=== PATIENT | female | born 1990 | race Caucasian/White ===

== ENCOUNTER 2021-10-02 07:31 | Emergency (ER) | payer OTHER, SELFPAY ==
[2021-10-02 07:36] VITALS: BP 129/79; PULSE 89; RESP 18; TEMP 36.3; O2SAT 99; BMI 30.4
--- NOTE | 2021-10-02 07:50 | ED_ITS ---
HPI - Female Genitourinary General Time Seen by Provider: 07:42 <Mary Westfall MD - Last Filed: 10/02/21 08:20> Date Seen: 10/02/21 <Mary Westfall MD - Last Filed: 10/02/21 08:20> Chief complaint: Flank Pain <Mary Westfall MD - Last Filed: 10/02/21 08:20> Stated complaint: Kidney pain/stone <Mary Westfall MD - Last Filed: 10/02/21 08:20> Time Seen by Provider: 10/02/21 07:43 <Mary Westfall MD - Last Filed: 10/02/21 08:20> Source: patient and RN notes reviewed <Mary Westfall MD - Last Filed: 10/02/21 08:20> Mode of arrival: ambulatory <Mary Westfall MD - Last Filed: 10/02/21 08:20> Limitations: no limitations <Mary Westfall MD - Last Filed: 10/02/21 08:20> History of Present Illness HPI Narrative: 30 year old female previously healthy female comes to the ER for evaluation of left flank pain and vomiting. Patient noted the onset of hematuria and burning with urination yesterday afternoon. This morning she is now vomiting. She described the pain as constant with radiation into the left groin. She notes that she has been urinating frequently and also has some soft stools. She denies fever or chills. Has not had any ill contacts. She tried to take ibuprofen and only minimally helped. She has had UTIs in the past but not frequently. She denies any cough cold sore throat. <Mary Westfall MD - Last Filed: 10/02/21 08:20> MD elicited complaint: dysuria <Mary Westfall MD - Last Filed: 10/02/21 08:20> Onset (ago): hour(s) (Began yesterday afternoon between 12 and 18 hours ago) <Mary Westfall MD - Last Filed: 10/02/21 08:20> Location of symptoms: flank (Left) <Mary Westfall MD - Last Filed: 10/02/21 08:20> Severity: moderate <Mary Westfall MD - Last Filed: 10/02/21 08:20> Patient : No <Mary Westfall MD - Last Filed: 10/02/21 08:20> Related Data Home medications: Previous Rx's Medication Instructions Recorded ondansetron 4 mg disintegrating 4 mg PO Q6H PRN #20 tab 10/02/21 tablet prochlorperazine maleate 5 mg 5 mg PO TID PRN #10 tab 10/02/21 tablet (Compazine) <Mary Westfall MD - Last Filed: 10/02/21 08:20> Allergies/Adverse reactions: Allergies Allergy/AdvReac Type Severity Reaction Status Date / Time latek Allergy Uncoded 10/02/21 07:36 <Mary Westfall MD - Last Filed: 10/02/21 08:20> Review of Systems Status of ROS: Reports: 10 or more systems reviewed and unremarkable except as noted in History and below <Mary Westfall MD - Last Filed: 10/02/21 08:20> Narrative: Patient denies fever. She has had no change in her vision, sore throat, chest pain, cough, shortness of breath. She denies abdominal pain. No lower extremity edema. No personal or family history of kidney stones. <Mary Westfall MD - Last Filed: 10/02/21 08:20> [facility] Social History: Social History Smoking Status: Never smoker Do you use any of these nicotine containing products: None How often do you have a drink containing alcohol: monthly or less AUDIT-C Alcohol total score: 1 Non-prescribed substance use: denies use <Mary Westfall MD - Last Filed: 10/02/21 08:20> Exam Const: Vital Signs, click to edit/add: Vital Signs - 24 hr 10/02/21 07:36 Temperature 97.4 F L Pulse Rate [Right Pulse Oximeter] 89 Respiratory Rate 18 Blood Pressure [Ri ght Upper Arm] 129/79 Pulse Oximetry 99 <Mary Westfall MD - Last Filed: 10/02/21 08:20> Vital Signs, click to edit/add: Vital Signs - 24 hr 10/02/21 07:36 Temperature 97.4 F L Pulse Rate [Right Pulse Oximeter] 89 Respiratory Rate 18 Blood Pressure [Ri ght Upper Arm] 129/79 Pulse Oximetry 99 <Emma Damon MD - Last Filed: 10/02/21 10:49> Documenting provider has reviewed patient's vital signs: yes <Mary Westfall MD - Last Filed: 10/02/21 08:20> Common normals: no apparent distress, oriented x3, no limitations and healthy appearing <Mary Westfall MD - Last Filed: 10/02/21 08:20> General appearance: cooperative and comfortable <Mary Westfall MD - Last Filed: 10/02/21 08:20> HENMT: Common normals: normocephalic <Mary Westfall MD - Last Filed: 10/02/21 08:20> Head and scalp: normocephalic <Mary Westfall MD - Last Filed: 10/02/21 08:20> Eye: General eye: normal appearance of both eyes <Mary Westfall MD - Last Filed: 10/02/21 08:20> Neck & C-Spine: Common normals: full ROM and supple <Mary Westfall MD - Last Filed: 10/02/21 08:20> Resp: Common normals: normal respiratory effort and clear to auscultation bilaterally <Mary Westfall MD - Last Filed: 10/02/21 08:20> Auscultation: clear to auscultation bilaterally <Mary Westfall MD - Last Filed: 10/02/21 08:20> Cardio: Common normals: regular rate and regular rhythm <Mary Westfall MD - Last Filed: 10/02/21 08:20> Rate: regular rate <Mary Westfall MD - Last Filed: 10/02/21 08:20> Rhythm: regular rhythm <Mary Westfall MD - Last Filed: 10/02/21 08:20> GI: Common normals: soft to palpation and non-tender <Mary Westfall MD - Last Filed: 10/02/21 08:20> Palpation: soft <Mary Westfall MD - Last Filed: 10/02/21 08:20> : Bladder/kidney exam: CVA tenderness (Mildly on the left) <Mary Westfall MD - Last Filed: 10/02/21 08:20> Back & Pelvis: General back: CVA tenderness (Mildly on the left) <Mary Westfall MD - Last Filed: 10/02/21 08:20> Lumbar spine/lower back: lumbar spinal tenderness (Mild) <Mary Westfall MD - Last Filed: 10/02/21 08:20> Extremity: Common normals: normal to inspection and full ROM <Mary Westfall MD - Last Filed: 10/02/21 08:20> Neuro: Common normals: oriented x3 <Mary Westfall MD - Last Filed: 10/02/21 08:20> Psych: Common normals: mental status grossly normal <Mary Westfall MD - Last Filed: 10/02/21 08:20> Skin: Common normals: no rashes or lesions noted <Mary Westfall MD - Last Filed: 10/02/21 08:20> General skin exam: no rashes or lesions noted <Mary Westfall MD - Last Filed: 10/02/21 08:20> Course Course Hospital Course: At this time differential diagnosis includes but is not limited to pyelonephritis, ureteral colic, nephrolithiasis, bowel pathology such as colitis, diverticulitis, enteritis. Will obtain a CBC, comprehensive panel, CRP, urinalysis, lactate. An IV will be placed and IV fluids 1 L normal saline, Toradol 15 mg and Zofran 4 mg IV will be given. At this time Dr. Capps will be taking over care of this patient. <Mary Westfall MD - Last Filed: 10/02/21 08:20> Reevaluation(s) Reevaluation #1: Reviewed with patient that her white count and chemistries including lactate are looking normal. Urine shows some hematuria, no definitive evidence for infection. She is feeling much better after Zofran and Toradol. She still has half of her fluids left to go. Reviewed with her that we will be doing a CT abdomen pelvis without contrast. It is possible this could be a kidney stone, still possible for early pyelonephritis, possible for other abdominal etiology given she has had some mild diarrhea. Will await CT scan results and I will review this with her once I have the radiology reading. <Emma Damon MD - Last Filed: 10/02/21 10:49> Time: 08:33 <Emma Damon MD - Last Filed: 10/02/21 10:49> Reevaluation #2: Patient: ANGELA GOMEZ Facility:?[facility] Patient ID:?[id number] Site Patient ID:?[id number]. Site :?[id number] Study:?CT Abdomen/Pelvis w/o-10/02/2021 9:08:26 AM Ordering Physician:Kurtis Carter Final Report: INDICATION: Left flank pain with urinary changes COMPARISON: There are no prior studies for comparison TECHNIQUE: CT examination of the abdomen and pelvis was performed without intravenous contrast. Thin section axial images were obtained from the lung bases through the pubic symphysis. Oral contrast was not administered. Please note that all CT scans at this facility use dose modulation, iterative reconstruction, and/or weight-based dosing when appropriate to reduce radiation dose to as low as reasonably achievable. FINDINGS: LUNG BASES: The lung bases as visualized appear normal.The heart size is normal at the lung bases. LIVER/BILIARY SYSTEM:The liver is normal in size and configuration given the lack of intravenous contrast. There is no visible focal mass and there is no intra- or extra hepatic biliary ductal dilatation.The gall bladder appears normal. ADRENALS: Normal non-contrast appearance KIDNEYS, URETERS and BLADDER:The kidneys appear normal given lack of intravenous contrast. No visible mass, calculus or hydronephrosis. The ureters and bladder as visualized appear normal. SPLEEN:Normal non-contrast appearance. PANCREAS: Normal non-contrast appearance. RETROPERITONEUM and MESENTERY: There is no mass, adenopathy or aortic aneurysm. GASTROINTESTINAL SYSTEM: There is no evidence of diverticulitis, colitis, mechanical obstruction, or appendicitis. The small bowel as visualized appears normal.A few scattered diverticula are noted. PELVIS: No mass, adenopathy or free fluid.Pelvic calcifications represent phleboliths OSSEOUS STRUCTURES and ABDOMINAL WALL: There is an age-appropriate appearance of the osseous structures.No significant abdominal wall defect. OTHER: No free fluid or free air. IMPRESSION: No visible cause for left flank pain and urinary changes. Please note that all CT scans at this facility use dose modulation, iterative reconstruction, and/or weight-based dosing when appropriate to reduce radiation dose to as low as reasonably achievable. Dictated by David Way MD @ 10/02/2021 9:27:54 AM (Electronic Signature) Reviewed with patient that her CT is showing no acute abnormalities. At 8:46 a.m. nursing reported that her nausea was increasing again but her pain was so good. We did order a 2nd dose of Zofran. At this time she is still feeling quite nauseated. I am going to see if Compazine will work for her. We have discussed that is the primary working diagnosis would be a viral gastroenteritis here. She states she has been having soft type stools for 2 days now. There is nothing on the laboratory evaluation or CT showing S any specific treatable etiology, nothing for an acute surgical abdomen. If the Compazine works for her, can send her home with a combination of Zofran and or Compazine for further outpatient treatment of this. <Emma Damon MD - Last Filed: 10/02/21 10:49> Time: 09:53 <Emma Damon MD - Last Filed: 10/02/21 10:49> Reevaluation #3: Patient had good control of her nausea with the IV Compazine, did noted made her feel a little jittery or anxious but nothing that she feels she needs anything for. Did review with her that it is very likely was a side effect of the Compazine. Oral usually does not give the same side effects. We are planning to discharge her to home with further outpatient management of probable gastroenteritis. Signs and symptoms for return reviewed. <Emma Person MD - Last Filed: 10/02/21 10:49> Time: 10:37 <Emma Damon MD - Last Filed: 10/02/21 10:49> Vital Signs Vital signs: Initial Vital Signs Temperature 97.4 F L 10/02/21 07:36 Temperature Source Temporal Artery Scan 10/02/21 07:36 Pulse Rate 89 10/02/21 07:36 Respiratory Rate 18 10/02/21 07:36 Blood Pressure 129/79 10/02/21 07:36 Blood Pressure Mean 95 10/02/21 07:36 Pulse Oximetry 99 10/02/21 07:36 Oxygen Delivery Method 10/02/21 07:36 Vital Signs Temperature 97.4 F L 10/02/21 07:36 Pulse Rate 89 10/02/21 07:36 Respiratory Rate 18 10/02/21 07:36 Blood Pressure 129/79 10/02/21 07:36 Pulse Oximetry 99 10/02/21 07:36 Temperature 97.4 F L 10/02/21 07:36 Pulse Rate 89 10/02/21 07:36 Respiratory Rate 18 10/02/21 07:36 Blood Pressure 129/79 10/02/21 07:36 Pulse Oximetry 99 10/02/21 07:36 <Mary Westfall MD - Last Filed: 10/02/21 08:20> Initial Vital Signs Temperature 97.4 F L 10/02/21 07:36 Temperature Source Temporal Artery Scan 10/02/21 07:36 Pulse Rate 89 10/02/21 07:36 Respiratory Rate 18 10/02/21 07:36 Blood Pressure 129/79 10/02/21 07:36 Blood Pressure Mean 95 10/02/21 07:36 Pulse Oximetry 99 10/02/21 07:36 Oxygen Delivery Method 10/02/21 07:36 Vital Signs Temperature 97.4 F L 10/02/21 07:36 Pulse Rate 89 10/02/21 07:36 Respiratory Rate 18 10/02/21 07:36 Blood Pressure 129/79 10/02/21 07:36 Pulse Oximetry 99 10/02/21 07:36 Temperature 97.4 F L 10/02/21 07:36 Pulse Rate 89 10/02/21 07:36 Respiratory Rate 18 10/02/21 07:36 Blood Pressure 129/79 10/02/21 07:36 Pulse Oximetry 99 10/02/21 07:36 <Emma Damon MD - Last Filed: 10/02/21 10:49> MDM - Female Genitourinary Lab Data Labs: Lab Results 10/02/21 10/02/21 10/02/21 Range/Units 07:47 07:47 08:00 WBC 6.79 (4.50-11.00) K/uL RBC 4.98 (4.00-5.20) m/uL Hgb 13.7 (12.0-16.0) gm/dL Hct 41.3 (33.0-51.0) % MCV 83 (80-100) fL MCH 28 (26-34) pg MCHC 33 (32-36) gm/dL RDW Coeff of Steve 13.1 (11.5-15.5) % Plt Count 393 (140-440) K/uL Neut % (Auto) 71.2 (42.0-72.0) % Lymph % (Auto) 19.1 L (20-44) % [place] % (Auto) 8.0 (0.0-11.0) % Eos % (Auto) 1.2 (0.0-7.0) % Baso % (Auto) 0.4 (0.0-3.0) % Neut # (Auto) 4.83 (1.7-7.0) K/uL Lymph # (Auto) 1.30 (0.90-2.90) K/uL [place] # (Auto) 0.50 (0.00-0.90) K/UL Eos # (Auto) 0.08 (0.00-0.50) K/uL Baso # (Auto) 0.03 (0.00-0.30) K/uL Abs Immat Gran (auto) 0.01 (0.00-0.30) K/uL Sodium (135-149) mmol/L Potassium (3.6-5.1) mmol/L Chloride (96-114) mmol/L Carbon Dioxide (20-32) mmol/L BUN (5-24) mg/dL Creatinine (0.5-1.5) mg/dL Estimated Creat Clear Estimated GFR ml/min Glucose (60-115) mg/dL Lactate (0.5-1.9) mmol/L Calcium (8.4-10.6) mg/dL Total Bilirubin (0.1-1.5) mg/dL AST (12-35) U/L ALT (4-35) U/L Alkaline Phosphatase (40-150) U/L C-Reactive Protein (0.5-1.0) mg/dL Total Protein (6.0-8.3) g/dL Albumin (3.3-5.0) g/dL Urine Color Cancelled Yellow Urine Appearance Cancelled Clear Urine pH Cancelled 6.5 Ur Specific [place] Cancelled 1.025 Urine Protein Cancelled 2+ A Urine Glucose (UA) Cancelled Negative Urine Ketones Cancelled Negative Urine Blood Cancelled Trace-intact A Urine Nitrite Cancelled Negative Urine Bilirubin Cancelled Negative Urine Urobilinogen Cancelled 0.2 Ur Leukocyte Esterase Cancelled Negative Urine RBC 0-2 (0-2) Urine WBC 0-2 (0-5) Urine WBC Clumps None (None) Ur Squamous Epith Cells None (None-Few) Urine Bacteria None (None) 10/02/21 10/02/21 Range/Units 08:00 08:00 WBC (4.50-11.00) K/uL RBC (4.00-5.20) m/uL Hgb (12.0-16.0) gm/dL Hct (33.0-51.0) % MCV (80-100) fL MCH (26-34) pg MCHC (32-36) gm/dL RDW Coeff of Steve (11.5-15.5) % Plt Count (140-440) K/uL Neut % (Auto) (42.0-72.0) % Lymph % (Auto) (20-44) % [place] % (Auto) (0.0-11.0) % Eos % (Auto) (0.0-7.0) % Baso % (Auto) (0.0-3.0) % Neut # (Auto) (1.7-7.0) K/uL Lymph # (Auto) (0.90-2.90) K/uL [place] # (Auto) (0.00-0.90) K/UL Eos # (Auto) (0.00-0.50) K/uL Baso # (Auto) (0.00-0.30) K/uL Abs Immat Gran (auto) (0.00-0.30) K/uL Sodium 139 (135-149) mmol/L Potassium 3.9 (3.6-5.1) mmol/L Chloride 106 (96-114) mmol/L Carbon Dioxide 23 (20-32) mmol/L BUN 11 (5-24) mg/dL Creatinine 0.9 (0.5-1.5) mg/dL Estimated Creat Clear 91.36 Estimated GFR 88 ml/min Glucose 108 (60-115) mg/dL Lactate 1.1 (0.5-1.9) mmol/L Calcium 9.0 (8.4-10.6) mg/dL Total Bilirubin 0.5 (0.1-1.5) mg/dL AST 25 (12-35) U/L ALT 19 (4-35) U/L Alkaline Phosphatase 61 (40-150) U/L C-Reactive Protein < 0.5 L (0.5-1.0) mg/dL Total Protein 7.8 (6.0-8.3) g/dL Albumin 4.4 (3.3-5.0) g/dL Urine Color Urine Appearance Urine pH Ur Specific [place] Urine Protein Urine Glucose (UA) Urine Ketones Urine Blood Urine Nitrite Urine Bilirubin Urine Urobilinogen Ur Leukocyte Esterase Urine RBC (0-2) Urine WBC (0-5) Urine WBC Clumps (None) Ur Squamous Epith Cells (None-Few) Urine Bacteria (None) <Mary Westfall MD - Last Filed: 10/02/21 08:20> Lab Results 10/02/21 10/02/21 10/02/21 Range/Units 07:47 07:47 08:00 WBC 6.79 (4.50-11.00) K/uL RBC 4.98 (4.00-5.20) m/uL Hgb 13.7 (12.0-16.0) gm/dL Hct 41.3 (33.0-51.0) % MCV 83 (80-100) fL MCH 28 (26-34) pg MCHC 33 (32-36) gm/dL RDW Coeff of Steve 13.1 (11.5-15.5) % Plt Count 393 (140-440) K/uL Neut % (Auto) 71.2 (42.0-72.0) % Lymph % (Auto) 19.1 L (20-44) % [place] % (Auto) 8.0 (0.0-11.0) % Eos % (Auto) 1.2 (0.0-7.0) % Baso % (Auto) 0.4 (0.0-3.0) % Neut # (Auto) 4.83 (1.7-7.0) K/uL Lymph # (Auto) 1.30 (0.90-2.90) K/uL [place] # (Auto) 0.50 (0.00-0.90) K/UL Eos # (Auto) 0.08 (0.00-0.50) K/uL Baso # (Auto) 0.03 (0.00-0.30) K/uL Abs Immat Gran (auto) 0.01 (0.00-0.30) K/uL Sodium (135-149) mmol/L Potassium (3.6-5.1) mmol/L Chloride (96-114) mmol/L Carbon Dioxide (20-32) mmol/L BUN (5-24) mg/dL Creatinine (0.5-1.5) mg/dL Estimated Creat Clear Estimated GFR ml/min Glucose (60-115) mg/dL Lactate (0.5-1.9) mmol/L Calcium (8.4-10.6) mg/dL Total Bilirubin (0.1-1.5) mg/dL AST (12-35) U/L ALT (4-35) U/L Alkaline Phosphatase (40-150) U/L C-Reactive Protein (0.5-1.0) mg/dL Total Protein (6.0-8.3) g/dL Albumin (3.3-5.0) g/dL Urine Color Cancelled Yellow Urine Appearance Cancelled Clear Urine pH Cancelled 6.5 Ur Specific [place] Cancelled 1.025 Urine Protein Cancelled 2+ A Urine Glucose (UA) Cancelled Negative Urine Ketones Cancelled Negative Urine Blood Cancelled Trace-intact A Urine Nitrite Cancelled Negative Urine Bilirubin Cancelled Negative Urine Urobilinogen Cancelled 0.2 Ur Leukocyte Esterase Cancelled Negative Urine RBC 0-2 (0-2) Urine WBC 0-2 (0-5) Urine WBC Clumps None (None) Ur Squamous Epith Cells None (None-Few) Urine Bacteria None (None) 10/02/21 10/02/21 Range/Units 08:00 08:00 WBC (4.50-11.00) K/uL RBC (4.00-5.20) m/uL Hgb (12.0-16.0) gm/dL Hct (33.0-51.0) % MCV (80-100) fL MCH (26-34) pg MCHC (32-36) gm/dL RDW Coeff of Steve (11.5-15.5) % Plt Count (140-440) K/uL Neut % (Auto) (42.0-72.0) % Lymph % (Auto) (20-44) % [place] % (Auto) (0.0-11.0) % Eos % (Auto) (0.0-7.0) % Baso % (Auto) (0.0-3.0) % Neut # (Auto) (1.7-7.0) K/uL Lymph # (Auto) (0.90-2.90) K/uL [place] # (Auto) (0.00-0.90) K/UL Eos # (Auto) (0.00-0.50) K/uL Baso # (Auto) (0.00-0.30) K/uL Abs Immat Gran (auto) (0.00-0.30) K/uL Sodium 139 (135-149) mmol/L Potassium 3.9 (3.6-5.1) mmol/L Chloride 106 (96-114) mmol/L Carbon Dioxide 23 (20-32) mmol/L BUN 11 (5-24) mg/dL Creatinine 0.9 (0.5-1.5) mg/dL Estimated Creat Clear 91.36 Estimated GFR 88 ml/min Glucose 108 (60-115) mg/dL Lactate 1.1 (0.5-1.9) mmol/L Calcium 9.0 (8.4-10.6) mg/dL Total Bilirubin 0.5 (0.1-1.5) mg/dL AST 25 (12-35) U/L ALT 19 (4-35) U/L Alkaline Phosphatase 61 (40-150) U/L C-Reactive Protein < 0.5 L (0.5-1.0) mg/dL Total Protein 7.8 (6.0-8.3) g/dL Albumin 4.4 (3.3-5.0) g/dL Urine Color Urine Appearance Urine pH Ur Specific [place] Urine Protein Urine Glucose (UA) Urine Ketones Urine Blood Urine Nitrite Urine Bilirubin Urine Urobilinogen Ur Leukocyte Esterase Urine RBC (0-2) Urine WBC (0-5) Urine WBC Clumps (None) Ur Squamous Epith Cells (None-Few) Urine Bacteria (None) <Emma Damon MD - Last Filed: 10/02/21 10:49> Discharge Plan Discharge Clinical Impression: Nausea & vomiting Qualifiers: Vomiting type: unspecified Qualified Code(s): R11.2 - Nausea with vomiting, unspecified Abdominal pain Qualifiers: Abdominal location: unspecified location Qualified Code(s): R10.9 - Unspecified abdominal pain <Mary Westfall MD - Last Filed: 10/02/21 08:20> Patient Disposition: Home, Self-Care <Mary Westfall MD - Last Filed: 10/02/21 08:20> Condition: Stable <Mary Westfall MD - Last Filed: 10/02/21 08:20> Instructions: Gastroenteritis (ED), Acute Nausea and Vomiting (ED), Abdominal Pain (ED) <Mary Westfall MD - Last Filed: 10/02/21 08:20> Additional Instructions: Can try Zofran per prescription to help with acute nausea and vomiting. If Zofran is not working prescription for Compazine will also be provided. Can use frequent sips of clear liquids every 5-10 minutes while awake to help pr event dehydration. Once you are feeling better an appetite is returning, abdominal pain is decreasing, can try did advance diet as tolerated back to regular. If you are not improving in the next 24-48 hours but not worsening, do recommend re-evaluation in clinic. If at any point her pain is worsening, develops fever with it, have uncontrolled vomiting, have new concerns associated with these current symptoms, do recommend return to the ER for further evaluation. <Mary Westfall MD - Last Filed: 10/02/21 08:20> Activity Level: Activity as Tolerated <Mary Westfall MD - Last Filed: 10/02/21 08:20> Activity as Tolerated <Emma Damon MD - Last Filed: 10/02/21 10:49> Prescriptions: New ondansetron 4 mg tablet,disintegrating 4 mg PO Q6H PRN (Reason: nausea and vomiting) Qty: 20 0RF prochlorperazine maleate [Compazine] 5 mg tablet 5 mg PO TID PRNQty: 10 0RF <Mary Westfall MD - Last Filed: 10/02/21 08:20> Stand Alone Forms: My[facility] Info Instructions <Mary Westfall MD - Last Filed: 10/02/21 08:20>
[2021-10-02] MEDS: 0.9 % SODIUM CHLORIDE 1000 ml 1,000 ML IV (08:08)
[2021-10-02] MEDS: ONDANSETRON 2 MG/ML inj 4 MG IVP ×2 (08:08→08:46)
[2021-10-02 08:09] LABS: Basophils Absolute Auto 0.03 K/uL (0.00-0.30); Basophils Percent Auto 0.4 % (0.0-3.0); Eosinophils Absolute Auto 0.08 K/uL (0.00-0.50); Eosinophils Percent Auto 1.2 % (0.0-7.0); Hematocrit 41.3 % (33.0-51.0); Hemoglobin* 13.7 gm/dL (12.0-16.0); Immature Granulocytes Abs Auto 0.01 K/uL (0.00-0.30); Lymphocytes Percent Auto 19.1 % (20-44); Mean Corpuscular HGB Conc 33 gm/dL (32-36); Mean Corpuscular Hemoglobin 28 pg (26-34); Mean Corpuscular Volume 83 fL (80-100); Neutrophils Absolute Auto 4.83 K/uL (1.7-7.0); Neutrophils Percent Auto 71.2 % (42.0-72.0); Platelet Count* 393 K/uL (140-440); RDW Coefficient of Variation % 13.1 % (11.5-15.5); Red Blood Count 4.98 m/uL (4.00-5.20); White Blood Count* 6.79 K/uL (4.50-11.00)
[2021-10-02] MEDS: KETOROLAC 15 MG/ML inj IVP (08:09)
[2021-10-02 08:10] LABS: Lactate* 1.1 mmol/L (0.5-1.9)
[2021-10-02 08:15] LABS: Appearance Urine Clear (Clear); Bilirubin Urine Negative (Negative); Blood Urine Trace-intact (Negative); Color Urine Yellow (Yellow); Glucose Urine Negative (Negative); Ketones Urine Negative (Negative); Leukocyte Esterase Urine Negative (Negative); Nitrite Urine Negative (Negative); Protein Urine 2+ (Negative); Specific Gravity Urine 1.025 (1.000-1.030); Urobilinogen Urine 0.2 (0.2-1.0); pH Urine 6.5 (5.0-8.5)
[2021-10-02 08:18] LABS: Slide Review Reflex No
--- NOTE | 2021-10-02 08:21 | CRLHL7_ITS ---
For Patients: As a result of the Century Cures Act, medical imaging exams and procedure reports are released immediately into your electronic medical record. You may view this report before your referring provider. If you have questions, please contact your health care provider. INDICATION: Left flank pain with urinary changes COMPARISON: There are no prior studies for comparison TECHNIQUE: CT examination of the abdomen and pelvis was performed without intravenous contrast. Thin section axial images were obtained from the lung bases through the pubic symphysis. Oral contrast was not administered. Please note that all CT scans at this facility use dose modulation, iterative reconstruction, and/or weight-based dosing when appropriate to reduce radiation dose to as low as reasonably achievable. FINDINGS: LUNG BASES: The lung bases as visualized appear normal.The heart size is normal at the lung bases. LIVER/BILIARY SYSTEM:The liver is normal in size and configuration given the lack of intravenous contrast. There is no visible focal mass and there is no intra- or extra hepatic biliary ductal dilatation.The gall bladder appears normal. ADRENALS: Normal non-contrast appearance KIDNEYS, URETERS and BLADDER:The kidneys appear normal given lack of intravenous contrast. No visible mass, calculus or hydronephrosis. The ureters and bladder as visualized appear normal. SPLEEN:Normal non-contrast appearance. PANCREAS: Normal non-contrast appearance. RETROPERITONEUM and MESENTERY: There is no mass, adenopathy or aortic aneurysm. GASTROINTESTINAL SYSTEM: There is no evidence of diverticulitis, colitis, mechanical obstruction, or appendicitis. The small bowel as visualized appears normal.A few scattered diverticula are noted. PELVIS: No mass, adenopathy or free fluid.Pelvic calcifications represent phleboliths OSSEOUS STRUCTURES and ABDOMINAL WALL: There is an age-appropriate appearance of the osseous structures.No significant abdominal wall defect. OTHER: No free fluid or free air. IMPRESSION: No visible cause for left flank pain and urinary changes. Please note that all CT scans at this facility use dose modulation, iterative reconstruction, and/or weight-based dosing when appropriate to reduce radiation dose to as low as reasonably achievable. Dictated by David Way MD @ 10/02/2021 9:27:54 AM (Electronically Signed)
[2021-10-02 08:44] LABS: RBC Urine 0-2 (0-2); WBC Urine 0-2 (0-5)
--- NOTE | 2021-10-02 08:52 | ED.NURSE ---
pt to CT. pt reports just completing her period. per Dr. Capps, no preg needed at this time
[2021-10-02 09:03] LABS: Albumin* 4.4 g/dL (3.3-5.0); Chloride* 106 mmol/L (96-114); Potassium* 3.9 mmol/L (3.6-5.1); Sodium* 139 mmol/L (135-149)
[2021-10-02 09:05] LABS: Creatinine* 0.9 mg/dL (0.5-1.5); Est. Creatinine Clearance* 91.36; Estimated Glomerular Filt Rate 88 ml/min
[2021-10-02 09:06] LABS: Alanine Aminotransferase* 19 U/L (4-35); Alkaline Phosphatase* 61 U/L (40-150); Aspartate Amino Transferase* 25 U/L (12-35); Bilirubin Total* 0.5 mg/dL (0.1-1.5); Blood Urea Nitrogen* 11 mg/dL (5-24); Carbon Dioxide* 23 mmol/L (20-32); Glucose* 108 mg/dL (60-115); Total Protein* 7.8 g/dL (6.0-8.3)
[2021-10-02 09:15] LABS: C Reactive Protein* < 0.5 mg/dL (0.5-1.0)
[2021-10-02] MEDS: PROCHLORPERAZINE 5 MG/ML VIAL IV (10:14)
[2021-10-02 11:03] VITALS: BP 127/68; PULSE 72; RESP 18
== END 2021-10-02 11:08 | disposition home or self-care (01) ==
PROVIDERS: Family Medicine; Emergency Provider Family Medicine; PCP Nurse Practitioner Family
DX: R11.10 Vomiting, unspecified (principal); R10.9 Unspecified abdominal pain
CPT/HCPCS: 36415; 74176; 80053; 81001; 81003; 81015; 83605; 85025; 86140; 87086; 96374; 96375; 96376; 99284; 99285; J0780; J1885; J2405; J7030